=== PATIENT | female | born 1945 | race Caucasian/White ===

== ENCOUNTER 2018-07-02 13:26 | Emergency (ER) | payer MEDICARE ==
[~2018-07-02] VITALS: Ht 165.1 cm; Wt 60.5 kg
[~2018-07-02 13:26] MED LIST: ALEN70TA3 PO; CODE1CAP24 PO; FLUO25PO MC; HYDR-971 PO; IBUP200T44 PO; OMEP5POW MC; OXYB1PAT TD; POTA10CA PO; SIMV5TAB5 PO
[2018-07-02] MEDS ORDERED: IPRATRPIUM/ALBUTEROL 0.5/2.5MG 3 ML NEBU. NEB ONE (13:30)
[2018-07-02] MEDS ORDERED: ONDANSETRON PF 4 MG/2 ML VIAL. IV ONE (13:30)
--- NOTE | 2018-07-02 13:44 | EKG ---
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
[2018-07-02] MEDS ORDERED: LORazepam 1 MG TABLET PO ONE (13:45)
[2018-07-02] MEDS ORDERED: IV NORMAL SALINE 1,000ML 1,000 ML IV ONE ×3 (13:45→16:45)
[2018-07-02 13:48] LABS: BASO # 0.1 x10^3/uL (0.0-0.2); BASO % 1 % (0-3); EOS # 0.2 x10^3/uL (0.0-0.7); EOS % 1 % (0-3); HEMOGLOBIN 13.3 g/dL (12.0-15.5); LYMPH # 0.9 x10^3/uL (1.0-4.8); LYMPH % 6 % (24-48); MEAN CORPUSCULAR HEMOGLOBIN 30 pg (25-35); MEAN CORPUSCULAR HGB CONC 33 g/dL (31-37); MEAN CORPUSCULAR VOLUME 89 fL (79-100); MONO # 0.7 x10^3/uL (0.0-1.1); MONO % 5 % (0-9); NEUT # 13.4 x10^3uL (1.8-7.7); NEUT % 88 % (31-73); PLATELET COUNT 214 x10^3/uL (140-400); RED BLOOD COUNT 4.48 x10^6/uL (3.50-5.40); RED CELL DISTRIBUTION WIDTH 13.4 % (11.5-14.5); WHITE BLOOD COUNT 15.3 x10^3/uL (4.0-11.0)
--- NOTE | 2018-07-02 13:53 | ED.ADGEN ---
Past History Past Medical History: Dementia Past Surgical History: No Surgical History Additional Past Surgical Histo: Hemorrhoidectomy Smoking: Non-smoker Alcohol Use: None Drug Use: None Adult General Chief Complaint Chief Complaint seizure, HPI HPI Patient is a 72-year-old female with history of dementia who witnessed seizure her to ED arrival. Patient fell hitting her head neck complaining of shoulder pain. Patient also a short of breath that EMS, tachypneic with rapid with coarse breath sounds and appeared to be in a post ictal state which resolved prior to ED arrival.. Denies chest pain. No fever chills, nausea vomiting or sweats. No abdominal pain. History is due limited due to dementia. Additional history obtained from patient's spouse. Patient shortness of breath and yesterday. She does not, the fever, cough, chest pain. No history of seizure disorder. Patient's history is limited due to the presence of dementia. Patient is tachypneic with clear breath sounds on exam. [] Review of Systems Review of Systems Review symptoms as per history of present illness. All other review symptoms are negative.[] All other systems were reviewed and found to be within normal limits, except as documented in this note. Current Medications Current Medications Current Medications Medications (Trade) Dose Ordered Sig/Elvia Start Time Stop Time Status Last Admin Dose Admin Albuterol/ Ipratropium (Duoneb) 3 ml 1X ONCE 07/02/18 13:30 07/02/18 13:46 DC 07/02/18 13:48 3 ML Ceftriaxone Sodium 2 gm/ Sodium Chloride 100 ml @ 200 mls/hr 1X ONCE 07/02/18 15:10 07/02/18 15:39 Cancel Ceftriaxone Sodium (Rocephin) 2 gm 1X ONCE 07/02/18 15:15 07/02/18 15:16 DC 07/02/18 15:18 2 GM Heparin Sodium/ Dextrose 500 ml @ 0 mls/hr CONT PRN 07/02/18 15:30 07/02/18 15:42 19.2 MLS/HR Iohexol (Omnipaque 300 Mg/ml) 75 ml 1X ONCE 07/02/18 15:15 07/02/18 15:16 DC Levetiracetam (Keppra) 500 mg STK-MED ONCE 07/02/18 15:01 07/02/18 15:02 DC Levetiracetam 1000 mg/Sodium Chloride 100 ml @ 400 mls/hr 1X ONCE 07/02/18 15:10 07/02/18 15:24 DC 07/02/18 15:18 400 MLS/HR Lorazepam (Ativan) 0.25 mg 1X ONCE 07/02/18 13:45 07/02/18 13:46 DC 07/02/18 13:45 0.25 MG Ondansetron HCl (Zofran) 4 mg 1X ONCE 07/02/18 13:30 07/02/18 13:46 DC 07/02/18 13:49 4 MG Sodium Chloride 1,000 ml @ 1,000 mls/hr 1X ONCE 07/02/18 16:45 07/02/18 17:44 DC Allergies Allergies Allergies Coded Allergies Type Severity Reaction Last Updated Verified No Known Drug Allergies 09/21/14 No Physical Exam Physical Exam Constitutional: Anxious, tachypnea, acutely ill appearing[] HENT: Normocephalic, atraumatic, bilateral external ears normal, oropharynx moist, nose normal. [] Eyes: PERRLA, EOMI, conjunctiva normal, no discharge. [] Neck: Normal range of motion. [] Cardiovascular: Regular rate and rhythm.. [] Lungs & Thorax: Respiration, nonlabored, moderate tachypnea, RR 35-40, breath sounds otherwise clear.. [] Abdomen: Bowel sounds normal, soft, no tenderness. [] Skin: Warm, dry. [] Back: No tenderness. [] Extremities: No tenderness, no edema. [] Neurologic: Alert and oriented X 1 normal motor function, normal sensory function, no focal deficits noted. [] Psychologic: Affect, anxious. [] Current Patient Data Vital Signs Vital Signs Date Time Temp Pulse Resp B/P (MAP) Pulse Ox O2 Delivery O2 Flow Rate FiO2 07/02/18 16:54 80 18 130/75 (93) 80 Nasal Cannula Lab Results Laboratory Tests Test 07/02/18 13:34 07/02/18 13:45 07/02/18 14:11 07/02/18 16:50 White Blood Count 15.3 x10^3/uL (4.0-11.0) H Red Blood Count 4.48 x10^6/uL (3.50-5.40) Hemoglobin 13.3 g/dL (12.0-15.5) Hematocrit 40.0 % (36.0-47.0) Mean Corpuscular Volume 89 fL (79-100) Mean Corpuscular Hemoglobin 30 pg (25-35) Mean Corpuscular Hemoglobin Concent 33 g/dL (31-37) Red Cell Distribution Width 13.4 % (11.5-14.5) Platelet Count 214 x10^3/uL (140-400) Neutrophils (%) (Auto) 88 % (31-73) H Lymphocytes (%) (Auto) 6 % (24-48) L Monocytes (%) (Auto) 5 % (0-9) Eosinophils (%) (Auto) 1 % (0-3) Basophils (%) (Auto) 1 % (0-3) Neutrophils # (Auto) 13.4 x10^3uL (1.8-7.7) H Lymphocytes # (Auto) 0.9 x10^3/uL (1.0-4.8) L Monocytes # (Auto) 0.7 x10^3/uL (0.0-1.1) Eosinophils # (Auto) 0.2 x10^3/uL (0.0-0.7) Basophils # (Auto) 0.1 x10^3/uL (0.0-0.2) Segmented Neutrophils % 86 % (35-66) H Band Neutrophils % 8 % (0-9) Lymphocytes % 5 % (24-48) L Toxic Granulation Present Platelet Estimate Adequate (ADEQUATE) Platelet Clumps, EDTA Present Large Platelets Occ Giant Platelets Occ Sodium Level 142 mmol/L (136-145) Potassium Level 3.5 mmol/L (3.5-5.1) Chloride Level 104 mmol/L (98-107) Carbon Dioxide Level 28 mmol/L (21-32) Anion Gap 10 (6-14) Blood Urea Nitrogen 8 mg/dL (7-20) Creatinine 1.1 mg/dL (0.6-1.0) H Estimated GFR (Cockcroft-Gault) 48.6 BUN/Creatinine Ratio 7 (6-20) Glucose Level 226 mg/dL (70-99) H Lactic Acid Level 2.9 mmol/L (0.4-2.0) H 3.4 mmol/L (0.4-2.0) H Calcium Level 9.1 mg/dL (8.5-10.1) Total Bilirubin 0.5 mg/dL (0.2-1.0) Aspartate Amino Transferase (AST) 48 U/L (15-37) H Alanine Aminotransferase (ALT) 39 U/L (14-59) Alkaline Phosphatase 113 U/L (46-116) Troponin I Quantitative 0.812 ng/mL (0-0.055) H JZ-Mdl-H-Type Natriuretic Peptide 229 pg/mL (0-124) H Total Protein 6.8 g/dL (6.4-8.2) Albumin 3.1 g/dL (3.4-5.0) L Albumin/Globulin Ratio 0.8 (1.0-1.7) L Blood pH 7.54 (7.35-7.45) H Blood Gas PCO2 24 mmHg (35-45) L Blood Gas PO2 93 mmHg (71-100) Blood Gas HCO3 20 mmol/L (22-26) L Arterial Bld O2 Saturation (Calc) 98 % (92-99) FiO2 28 % Prothrombin Time 10.4 SEC (9.4-11.4) Prothrombin Time INR 1.0 (0.9-1.1) PTT 24 SEC (23-33) D-Dimer (Sarah) > 19.00 mg/L (0.00-0.50) H EKG EKG [EKG 1: Sinus rhythm, possible ST elevation in anterior lateral leads, no findings of STEMI.] EKG 2: Normal sinus rhythm, rate 83, no acute ST-T wave changes, QTC 473. Radiology/Procedures Radiology/Procedures [CT head/cervical spine: No acute findings per radiology report. Chest x-ray: Left lobar atelectasis. CTA chest: Saddle pulmonary embolus extending into B segmental branches with evidence of right heart strain CT abdomen pelvis: No acute findings. ] Course & Med Decision Making Course & Med Decision Making Pertinent Labs and Imaging studies reviewed. (See chart for details) [Patient acutely ill with new onset seizure with elevated troponin and abnormal EKG findings. Question aspiration pneumonia with left lower lobe aspirate on exam, sepsis. IV fluids, antibiotics started empirically. Patient treated for sepsis. CT head/cervical spine nonacute. Heparin initiated for possible ACS vs PE. . CT angiogram chest, CT abdomen pelvis ordered and pending. Given the multiple acute lab abnormalities and potential for greater instability, the patient will be transferred to [facility] ICU. Dr. Finch to admit] Final Impression Final Impression [1. New onset seizure 2. Acute respiratory failure with hypoxia 3. Sepsis 4. Elevated Troponin 5. Elevated Ddimer] Dragon Disclaimer Dragon Disclaimer This electronic medical record was generated, in whole or in part, using a voice recognition dictation system. TIANA MATHIAS DO Jul 02, 2018 13:53
[2018-07-02 14:06] LABS: ALBUMIN 3.1 g/dL (3.4-5.0); ALBUMIN/GLOBULIN RATIO 0.8 (1.0-1.7); CALCIUM 9.1 mg/dL (8.5-10.1); CREATININE 1.1 mg/dL (0.6-1.0); GFR 48.6; POTASSIUM 3.5 mmol/L (3.5-5.1); TOTAL BILIRUBIN 0.5 mg/dL (0.2-1.0); TOTAL PROTEIN 6.8 g/dL (6.4-8.2)
[2018-07-02 14:08] LABS: BGAS PH 7.54 (7.35-7.45)
[2018-07-02 14:23] LABS: % BANDS 8 % (0-9); % LYMPHS 5 % (24-48); % SEGS 86 % (35-66); PLATELET CLUMP PRESENT; PLT ESTIMATE ADEQUATE (ADEQUATE); TOXIC GRANULATION PRESENT
--- NOTE | 2018-07-02 14:47 | RAD ---
CT of the head without contrast, 07/02/2018: HISTORY: Headache and seizure Comparison is made to a study from 11/25/2015. Artifacts degrade image quality on lower images. There is moderate cerebral atrophy. There are mild deep white matter lucencies compatible with chronic ischemic change. Minimal bilateral basal ganglia calcifications are present. The ventricles are mildly enlarged on a compensatory basis. There is no shift of the midline structures. There is no evidence of acute intracranial hemorrhage or mass effect. IMPRESSION: 1. Chronic findings as described above. 2. No acute intracranial abnormality is detected. CT of the cervical spine without contrast, 07/02/2018: Noncontrast scans were obtained with multiplanar reconstructions produced. There has been a previous anterior spinal fusion from C4 through C6 with an anterior fixation plate and multiple screws in place. There are disc spacers at C4-5 and C5-6. There is moderate degenerative disc disease with spurring and mild anterolisthesis at C6-7. This anterolisthesis is unchanged when compared to cervical spine radiographs from 02/08/2015. There is mild degenerative disc disease and minimal retrolisthesis at C3-4. There are moderate degenerative changes involving multiple facet joints bilaterally. No acute fracture is identified. No high-grade central spinal stenosis is evident. There is mild foraminal stenosis at several levels bilaterally. No prevertebral soft tissue swelling is seen. IMPRESSION: 1. Previous anterior spinal fusion and instrumentation from C4 through C6. 2. Moderate multilevel degenerative change. 3. Mild chronic anterolisthesis at C6-7. 4. Slight retrolisthesis at C3-4 which appears to be due to facet joint arthropathy. 5. No acute bony abnormality is detected. PQRS Compliance Statement: One or more of the following individualized dose reduction techniques were utilized for this examination: 1. Automated exposure control 2. Adjustment of the mA and/or kV according to patient size 3. Use of iterative reconstruction technique Electronically signed by: Zafar Adler MD (07/02/2018 2:44 PM) [facility]
--- NOTE | 2018-07-02 14:49 | EKG ---
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
--- NOTE | 2018-07-02 14:49 | RAD ---
AP chest, 07/02/2018: HISTORY: Seizure and headache Comparison is made to a study from 11/25/2015. The heart is at the upper limits of normal in size. The pulmonary vascularity is normal. There is mild linear atelectasis in the left base. No pulmonary consolidation is seen. There is no evidence of pleural fluid or pneumothorax. IMPRESSION: Mild left basilar linear atelectasis. Electronically signed by: Zafar Adler MD (07/02/2018 2:46 PM) [facility]
[2018-07-02] MEDS ORDERED: levETIRAcetam 500 MG/5 ML VIAL IV ONE (15:01)
[2018-07-02] MEDS ORDERED: IV NORMAL SALINE 100ML 100 ML ONE (15:01)
[2018-07-02] MEDS ORDERED: HEPARIN 25,000UTS/500ML PREMIX 500 ML IV PRN ×2 (15:10→15:30)
[2018-07-02] MEDS ORDERED: IOHEXOL 300 MG/ML 75 ML VIAL. IV ONE (15:15)
[2018-07-02] MEDS ORDERED: cefTRIAXone IV Push 1 GM VIAL. IVP ONE (15:15)
--- NOTE | 2018-07-02 16:53 | RAD ---
PQRS Compliance statement: One or more of the following individualized dose reduction techniques were utilized for this examination: 1. Automated exposure control. 2. Adjustment of the mA and/or kV according to patient size. 3. Use of iterative reconstruction technique. Indication:SEPTIC, SHORT OF BREATH TECHNIQUE: CT angiogram of the chest and CT abdomen and pelvis in portal venous phase with IV contrast with multiplanar reformats. COMPARISON: None FINDINGS: CT angio chest: There is a large saddle embolus with additional central and segmental bilateral PEs. There is evidence of right heart strain as suggested by leftward division of the intraventricular septum. Heart is normal in size. No pericardial or pleural effusion. Bilateral breast implants. No enlarged axillary, mediastinal or hilar adenopathy. Significant motion artifact is seen in the lungs limiting optimal evaluation. Central airways are patent. Mild bibasilar dependent atelectasis. Scarring or subsegmental atelectasis in the left lung base. No suspicious bony lesion in the chest. CT abdomen pelvis: 7 mm subcapsular low attenuating lesion is seen in segment 4A most likely cystic biliary hamartoma. Otherwise, liver, gallbladder, pancreas, adrenals within normal limits. Single dystrophic calcification seen in the spleen. Otherwise been within normal limits. No nephrolithiasis or hydronephrosis. No enlarged retroperitoneal or pelvic adenopathy. No free pelvic fluid or ascites. There is mild prominence of intrahepatic biliary duct dilation, nonspecific. No bowel obstruction. Normal appendix. Bladder within normal limits. Vera catheter is seen in the vagina. Uterus is present with multiple calcified fibroids. No pneumoperitoneum. No suspicious bony lesion. IMPRESSION: 1. Bilateral central and segmental PE with large saddle embolus with evidence of right heart strain. 2. Patchy opacities and small area of consolidation in the bilateral lower lobes most likely dependent atelectasis and subsegmental atelectasis. 3. Vera catheter in the vaginal canal. Please readjust. Critical findings were identified on 07/02/2018 4:39 PM, read back and verified with Dr. Butler on 07/02/2018 4:[address] Stuart Dwyer DO. Electronically signed by: Stuart Dwyer DO (07/02/2018 4:50 PM) [facility]
[2018-07-02 16:54] VITALS: BP 130/75
== END 2018-07-02 16:55 | disposition short-term general hospital (02) ==
LOC: ER 13:26
DX: R56.9 Unspecified convulsions (principal); J96.01 Acute respiratory failure with hypoxia; A41.9 Sepsis, unspecified organism; R79.1 Abnormal coagulation profile; R79.89 Other specified abnormal findings of blood chemistry; F03.90 Unspecified dementia, unspecified severity, without behavioral disturbance, psychotic disturbance, mood disturbance, and anxiety; J98.11 Atelectasis
CPT/HCPCS: 36415; 51702; 70450; 71045; 71275; 72125; 74177; 80053; 82803; 83605; 83880; 84484; 85007; 85025; 85379; 85610; 85730; 87040; 93005; 94640; 96365; 96375; 99285; J0696; J1953; J2405; J7620; J7030